=== PATIENT | male | born 1955 | race Caucasian/White ===

== ENCOUNTER 2020-12-25 09:21 | Emergency (ER) | payer OTHER, MEDICARE ==
[~2020-12-25] VITALS: Ht 175.3 cm; Wt 90.7 kg
[2020-12-25 09:21] VITALS: BP 114/56
--- NOTE | 2020-12-25 09:21 | NUR ---
PT BIBA to bed 10 via [facility].
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
--- NOTE | 2020-12-25 09:30 | NUR ---
Dr. Gleason is evaluating patient at bedside.
--- NOTE | 2020-12-25 09:45 | NUR ---
RAD at bedside
[2020-12-25] MEDS ORDERED: ACET-2619 PO (09:53)
[2020-12-25] MEDS ORDERED: TAMS0.4C96 PO (09:53)
[2020-12-25] MEDS ORDERED: ASPI-1822 PO (09:53)
[2020-12-25] MEDS ORDERED: ATOR20TA PO (09:53)
[2020-12-25] MEDS ORDERED: SODI100076 PO (09:53)
[2020-12-25] MEDS ORDERED: AMLO5TAB PO (09:53)
[2020-12-25] MEDS ORDERED: TELM40TA1 PO (09:53)
--- NOTE | 2020-12-25 10:15 | NUR ---
Dr. Gleason on the phone with son to provide status update on patient.
--- NOTE | 2020-12-25 10:34 | NUR ---
Patient placed back onto room air for updated baseline per Dr. Gleason request. Water cup provided per patient request. Dr. Gleason made aware.
--- NOTE | 2020-12-25 10:45 | NUR ---
Patient tolerated water sips well. SpO2 95% on room air. Dr. Gleason made aware.
[2020-12-25 11:39] VITALS: BP 107/60
--- NOTE | 2020-12-25 11:39 | NUR ---
Patient discharged with v/s stable. Written and verbal after care instructions given and explained. Patient verbalized understanding. Ambulance Transport with to care home. All questions addressed prior to discharge. Advised to follow up with PMD.
--- NOTE | 2020-12-25 11:42 | NUR ---
Transport team arrived and assisted patient to [facility] without incident.
== END 2020-12-25 11:42 | disposition home or self-care (01) ==
LOC: MED 09:21
DX: T17.300A Unspecified foreign body in larynx causing asphyxiation, initial encounter (principal); I10 Essential (primary) hypertension; Z88.0 Allergy status to penicillin; Z79.899 Other long term (current) drug therapy; X58.XXXA Exposure to other specified factors, initial encounter; Y93.89 Activity, other specified; Y92.89 Other specified places as the place of occurrence of the external cause; Y99.8 Other external cause status
CPT/HCPCS: 71045; 99283

== ENCOUNTER 2020-12-30 21:56 | Inpatient (IN) | payer OTHER, MEDICARE, SELFPAY ==
[~2020-12-30] VITALS: Ht 172.7 cm; Wt 89.8 kg
[2020-12-30 21:56] VITALS: BP 66/30
[~2020-12-30 21:56] MED LIST: ACET-2619 PO; AMLO5TAB PO; ASPI-1822 PO; ATOR20TA PO; SODI100076 PO; TAMS0.4C96 PO; TELM40TA1 PO
--- NOTE | 2020-12-30 21:56 | NUR ---
PT DOROTHY BLS. TAKEN TO BED 10
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
[2020-12-30] MEDS ORDERED: ACETAMINOPHEN 650 MG SUPP RC ONE (22:10)
[2020-12-30] MEDS ORDERED: NACL 0.9% 2,500 ML IV ONE (22:20)
[2020-12-30 23:00] LABS: BILIRUBIN,URINE NEGATIVE (NEGATIVE); BLOOD, URINE 3+ (NEGATIVE); COLOR,URINE YELLOW (YELLOW); LEUKOCYTE ESTERASE ,URINE 3+ (NEGATIVE); NITRITE, URINE NEGATIVE (NEGATIVE); UGLUCOSE NEGATIVE (NEGATIVE)
[2020-12-30 23:06] LABS: BASOPHILS # (AUTO) 0.4 K/uL (0.00-0.22); BASOPHILS % (AUTO) 2.5 % (0.0-2.0); EOSINOPHILS # (AUTO) 0.4 K/uL (0-0.4); EOSINOPHILS % (AUTO) 2.7 % (0.0-4.0); HEMATOCRIT 33.7 % (36-52); HEMOGLOBIN 10.8 g/dL (12.0-18.0); LYMPHOCYTES # (AUTO) 1.9 K/uL (2.0-11.5); LYMPHOCYTES % (AUTO) 13.1 % (20.5-51.1); MEAN CORPUSCULAR HEMOGLOBIN 28 pg (27-31); MEAN CORPUSCULAR HGB CONC 32 g/dL (33-37); MEAN CORPUSCULAR VOLUME 87.2 fL (80-94); MONOCYTES # (AUTO) 1.2 K/uL (0.8-1.0); MONOCYTES % (AUTO) 8.1 % (1.7-9.3); NEUTROPHILS # (AUTO) 10.9 K/uL (1.8-7.7); NEUTROPHILS % (AUTO) 73.6 % (42.2-75.2); PLATELET COUNT (AUTO) 501 K/uL (140-450); RED BLOOD CELL COUNT(AUTO) 3.87 MIL/uL (4.20-6.10); RED CELL DISTRIBUTION WIDTH 15.9 % (11.6-13.7); WHITE BLOOD COUNT (AUTO) 14.7 K/uL (4.8-10.8)
--- NOTE | 2020-12-30 23:15 | NUR ---
DR. DEE AT BEDSIDE FOR EXAM
[2020-12-30] MEDS ORDERED: NACL 0.9% 1,000 ML IV ONE ×2 (23:35)
[2020-12-30 23:37] LABS: ALBUMIN 1.9 g/dL (3.4-5.0); ANION GAP 20.8 (8-16); CARBON DIOXIDE 19.7 mmol/L (21-32); CREATININE 3.4 mg/dL (0.6-1.3); POTASSIUM 4.5 mmol/L (3.5-5.1); TOTAL BILIRUBIN 0.4 mg/dL (0.0-1.0)
[2020-12-30 23:38] LABS: PROTHROMBIN TIME 11.1 secs (10.8-13.4)
[2020-12-30 23:38] LABS: APPEARANCE,URINE HAZY (CLEAR)
[2020-12-30 23:55] LABS: RBC,URINE >100 /HPF (0-5); WBC,URINE 20-60 /HPF (0-5)
[2020-12-31] MEDS ORDERED: cefTRIAXone 1,000 MG VIAL ONE (00:18)
--- NOTE | 2020-12-31 00:29 | NUR ---
PT TAKEN TO CT
[2020-12-31] MEDS ORDERED: NACL 0.45% 1,000 ML IV ONE (00:35)
--- NOTE | 2020-12-31 02:00 | NUR ---
BP IMPROVED. IS MORE VERBAL BUT IS WITH CONFUSED CONVERATION. PT IS AFEBRILE
[2020-12-31] MEDS ORDERED: ONDA4TAB PO (02:44)
[2020-12-31] MEDS ORDERED: HEPA500056 (02:44)
[2020-12-31] MEDS ORDERED: TAMS0.4C96 PO (02:45)
--- NOTE | 2020-12-31 03:06 | NUR ---
Patient will be admitted to care of DANIEL GOLDBERG. Belongings list completed. Transfered via rwelch, attached to .
--- NOTE | 2020-12-31 03:10 | NUR ---
RECEIVED PATIENT FROM ER NURSE VIA [facility] FOR CONTINUITY OF CARE. PATIENT IS ALERT WITH EPISODES OF CONFUSION, ABLE TO MAKE SIMPLE NEEDS KNOWN. RESPIRATIONS EVEN, UNLABORED. NO S/S RESPIRATORY DISTRESS. S1/S2 AUSCULTATED. TELE MONITORING. SKIN ASSESSMENT COMPLETED. ABDOMINAL WOUND NOTED WITH [address] IN [address] WITH JOYNER DRAINAGE NOTED. NON PITTING EDEMA NOTED TO LEFT HAND. SALINE LOCK TO LEFT WRIST 18G PATENT/INTACT. IV SITE TO LEFT AC 18G PATENT/INTACT, INFUSING FLUIDS WELL. NO C/O PAIN. NO S/S ACUTE DISTRESS. ABDOMEN SOFT, NONTENDER, NONDISTENDED. BOWEL SOUNDS ACTIVE x4 QUADRANTS. OSUNA CATHETER PATENT WITH YELLOW URINE DRAINING TO GRAVITY. PATIENT ORIENTED TO ROOM/STAFF/CALL LIGHT. MRSA SCREEN COMPLETED. PLAN OF CARE DISCUSSED. CALL LIGHT IN REACH. SAFETY PRECAUTIONS IN PLACE.
--- NOTE | 2020-12-31 03:14 | NUR ---
CONTACTED MD REGARDING ADMIT ORDERS. AWAITING RESPONSE.
[2020-12-31 04:00] VITALS: BP 110/59
--- NOTE | 2020-12-31 05:04 | NUR ---
PATIENT IS ASLEEP. NO S/S ACUTE DISTRESS. PATIENT CLEAN/DRY. CALL LIGHT WITHIN REACH. SAFETY PRECAUTIONS IN PLACE.
--- NOTE | 2020-12-31 07:15 | NUR ---
RECEIVED REPORT FROM ELECTRICAL LINESWORKER RN FOR CONTINUITY OF CARE. PATIENT ASLEEP IN BED IN SUPINE POSITION IN WOUND BED. DTI AT SACRAL AREA. ABD OPEN WOUND, COVERED WITH DRY DRESSING. IV TO LEFT RIGHT AC 18G INFUSING 1/2 NS @ 100ML/HR. OSUNA CATHETER IN PLACE, DRAIN FREELY BY GRAVITY. NO ACUTE DISTRESS NOTED. SAFETY MEASURES IN PLACE, WILL CONTINUE TO MONITOR.
[2020-12-31 08:00] VITALS: BP 117/60
--- NOTE | 2020-12-31 10:11 | NUR ---
PATIENT HAS BEEN SCREENED AND CATEGORIZED HIGH NUTRITION RISK. PATIENT WILL BE SEEN WITHIN 1-2 DAYS OF ADMISSION. 12/31/20 - 01/01/21 TANIYA MELGAR MBA, RD
[2020-12-31] MEDS ORDERED: DOCUSATE SODIUM 100 MG GELCAP PO PRN (10:45)
[2020-12-31] MEDS ORDERED: NACL 0.9% 1,000 ML IV SCH (10:45)
[2020-12-31] MEDS ORDERED: HYDROcodone/APAP 7.5/325 MG 1 TAB PO PRN (10:45)
[2020-12-31] MEDS ORDERED: ONDANSETRON 4 MG/2 ML VIAL IM/IVP PRN (10:45)
[2020-12-31] MEDS ORDERED: ACETAMINOPHEN 325 MG TAB PO PRN ×2 (10:45→14:40)
[2020-12-31] MEDS ORDERED: POTASSIUM CHLORIDE 10 MEQ TABER PO PRN (10:45)
--- NOTE | 2020-12-31 10:48 | NUR ---
WOUND CARE PERFORMED AT THE ABDOMEN. CLEANSE WITH NS, PACKED WITH KERLIX ROLL WET TO DRY, COVERED WITH ABD PAD, SECURED WITH TAPE, SAFETY MEASURES IN PLACE. PATIENT TOLERATED WELL. SACRAL AREA OPTIFORM DRESSING INTACT. SAFETY MEASURES IN PLACE, WILL CONTINUE TO MONITOR.
[2020-12-31 11:22] LABS: CHOL/HDL RATIO 3.9 (1-4.5); FREE T4 (FREE THYROXINE) 1.39 ng/dL (0.76-1.46); MAGNESIUM 2.4 mg/dL (1.8-2.4); PHOSPHORUS 3.4 mg/dL (2.5-4.9); THYROID STIMULATING HORMONE 2.12 uIU/mL (0.34-3.74)
[2020-12-31] MEDS ORDERED: NACL 0.45% 1,000 ML IV SCH (11:30)
[2020-12-31 12:00] VITALS: BP 109/49
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
[2020-12-31] MEDS ORDERED: VANCOMYCIN PER PHARMACY MC PRN (13:25)
[2020-12-31] MEDS ORDERED: DEXTROSE 5% 1,000 ML IV SCH (13:30)
[2020-12-31] MEDS ORDERED: VANCOMYCIN 1,500 MG in DEXTROSE 5% 500 ML IV SCH (15:00)
--- NOTE | 2020-12-31 15:01 | NUR ---
FIRST DOSE OF VANCOMYCIN GIVEN VIA IVPB. SAFETY MEASURES IN PLACE, WILL CONTINUE TO MONITOR.
[2020-12-31 15:24] LABS: ANION GAP 16.7 (8-16); CARBON DIOXIDE 19.4 mmol/L (21-32); CREATININE 2.9 mg/dL (0.6-1.3); POTASSIUM 4.1 mmol/L (3.5-5.1)
--- NOTE | 2020-12-31 15:40 | NUR ---
RECEIVED CRITICAL LAB VALUE SODIUM 157, REPORTED TO DR. FREY. NEW ORDER OBTAINED TO DECREASE IVF D5W TO 75ML/HR. WILL CARRY OUT.
[2020-12-31 16:00] VITALS: BP 110/64
--- NOTE | 2020-12-31 16:15 | NUR ---
REPOSITION THE PATIENT TO RIGHT LATERAL. PATIENT KEPT COMFORTABLY. SAFETY MEASURES IN PLACE, WILL CONTINUE TO MONITOR.
[2020-12-31] MEDS: DEXTROSE 5% 1,000 ML IV SCH (17:21)
--- NOTE | 2020-12-31 19:20 | NUR ---
ENDORSED PATIENT TO ENGINEERING DIRECTOR RN FOR CONTINUITY OF CARE. PATIENT IN STABLE CONDITION.
--- NOTE | 2020-12-31 19:29 | NUR ---
RECEIVED PATIENT IN BED AWAKE SLURRED/GABLED SPEECH A AND OX1 TO HIS NAME.
[2020-12-31 20:00] VITALS: BP 118/70
--- NOTE | 2020-12-31 21:00 | NUR ---
ALL DUE MEDS WERE GIVEN VIA IV, TOLERATED WELL BY THE PATIENT
--- NOTE | 2020-12-31 22:00 | NUR ---
SUPERVISOR CONCRETE BLOCK PLANT CALLED TO DOOR HANGER PATIENT FOR CT SCAN PROCEDURE
--- NOTE | 2020-12-31 23:00 | NUR ---
DR. KILGORE CAME BY TO SEE THE PATIENT, RN HELPED HIM TO ASSESS THE WOUND OF THE PATIENT AND LINES ATTACHED TO THE PATIENT LIKE OSUNA CATH. AND RAFI DRAIN FROM ABDOMINAL WOUND
[2021-01-01] VITALS: BP 116/58
--- NOTE | 2021-01-01 | NUR ---
NEW ORDER OF YL IVPB.
[2021-01-01 04:00] VITALS: BP 108/60
[2021-01-01] MEDS: metroNIDAZOLE 500 MG/NS PREMIX 100 ML IV SCH ×2 (04:48→12:42)
[2021-01-01] MEDS: DEXTROSE 5% 1,000 ML IV SCH (05:00)
--- NOTE | 2021-01-01 05:05 | NUR ---
PATIENT ASLEEP DUE FLAGYL 500 MG IVPB ADMINISTERED, YARD DEMURRAGE CLERK CAME TO DRAW BLOOD.
[2021-01-01 06:06] LABS: BASOPHILS # (AUTO) 0.4 K/uL (0.00-0.22); BASOPHILS % (AUTO) 2.7 % (0.0-2.0); EOSINOPHILS # (AUTO) 0.9 K/uL (0-0.4); EOSINOPHILS % (AUTO) 6.9 % (0.0-4.0); HEMATOCRIT 29.3 % (36-52); HEMOGLOBIN 9.4 g/dL (12.0-18.0); LYMPHOCYTES # (AUTO) 1.4 K/uL (2.0-11.5); LYMPHOCYTES % (AUTO) 10.4 % (20.5-51.1); MEAN CORPUSCULAR HEMOGLOBIN 29 pg (27-31); MEAN CORPUSCULAR HGB CONC 32 g/dL (33-37); MONOCYTES # (AUTO) 1.1 K/uL (0.8-1.0); NEUTROPHILS # (AUTO) 9.8 K/uL (1.8-7.7); PLATELET COUNT (AUTO) 409 K/uL (140-450); RED CELL DISTRIBUTION WIDTH 15.6 % (11.6-13.7); WHITE BLOOD COUNT (AUTO) 13.6 K/uL (4.8-10.8)
[2021-01-01 06:23] LABS: ANION GAP 18.4 (8-16); CARBON DIOXIDE 17.5 mmol/L (21-32); CREATININE 2.8 mg/dL (0.6-1.3); POTASSIUM 3.9 mmol/L (3.5-5.1)
--- NOTE | 2021-01-01 06:48 | NUR ---
REPORT GIVEN TO INCOMING RN, CONTINUE CARE ENDORSED.
--- NOTE | 2021-01-01 07:20 | NUR ---
RECEIVED REPORT FROM COMMISSIONER OF RELOCATION SERVICES RN FOR CONTINUITY OF CARE. PATIENT ASLEEP IN BED COMFORTABLY IN RIGHT LATERAL POSITION. IV TO LEFT AC 18G INFUSING IVF D5W @ 75ML/HR. ABDOMEN OPEN WOUND DRESSING INTACT. SACRAL DTI DRESSING INTACT. OSUNA CATHETER IN PLACE, DRAIN FREELY BY GRAVITY. SAFETY MEASURES IN PLACE, NO ACUTE DISTRESS NOTED AT THIS TIME. WILL CONTINUE TO MONITOR.
[2021-01-01 08:00] VITALS: BP 113/64
[2021-01-01 08:06] LABS: T4 (THYROXINE) 6.7 ug/dL (4.5-12.0)
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
[2021-01-01] MEDS: amLODIPine 5 MG TAB PO SCH (09:00)
[2021-01-01] MEDS: LOSARTAN 50 MG TAB PO SCH (09:00)
[2021-01-01] MEDS ORDERED: TELMISARTAN 40 MG PO SCH (09:00)
[2021-01-01] MEDS ORDERED: TAMSULOSIN 0.4 MG CAP PO SCH (09:00)
[2021-01-01] MEDS ORDERED: SODIUM CHLORIDE 1 GM TAB PO SCH (09:00)
--- NOTE | 2021-01-01 09:05 | NUR ---
INFORMED PSYCHIATRIC TECH WALT THAT PATIENT NEED TO TRANSFER TO [facility] REGARDING DR. PHILIP ARRINGTON. WALT MADE AWARE. WILL WORK ON THAT. WILL FOLLOW UP.
[2021-01-01] MEDS: NACL 0.45% 1,000 ML IV SCH ×2 (09:45→21:45)
[2021-01-01] MEDS: TAMSULOSIN 0.4 MG CAP PO SCH (09:59)
[2021-01-01] MEDS: ATORVASTATIN 20 MG TAB PO SCH (09:59)
[2021-01-01] MEDS: ASPIRIN 81 MG TAB.CHEW PO SCH (09:59)
--- NOTE | 2021-01-01 11:00 | NUR ---
DC PLANNING: PT HAS A TRANSFER ORDER TO GO TO [facility] FOR DEHISCENCE OF SURGICAL SITE AND WILL NEED FURTHER EVALUATION WITH THE SURGEON. FAXED TO [facility]. CM TO FOLLOW Addendum: 01/01/21 at 1309 by Alisha Davis RN DC PLANNING: RECEIVED A CALL FROM [facility]P SPOKE WITH BIBI , PROVIDED DR PALACIOS'S UMBER FOR PEER TO PEER . ANISH MTZ WILL REACH OUT THE TRAUMA DR AND CALL BACK. CM TO FOLLOW Addendum: 01/01/21 at 1606 by Alisha Davis RN DC PLANNING: PER DR PALACIOS [facility] DIDN'T ACCEPT PATIENT RECOMMENDED FOR OUR SURGEON TO EVALUATE. CONSULTED WITH DR FELIPE . CM TO FOLLOW Addendum: 01/03/21 at 1450 by Alisha Davis RN DC PLANNING: FAXED TO [facility] FOR HIGHER LEVEL OF CARE. CM TO FOLLOW Addendum: 01/04/21 at 1201 by Alisha Davis RN DC PLANNING: PT HAS A DC ORDER TO GO BACK TO [facility] [place] WITH IV ROCEPHIN FOR 7 MORE DAYS. [facility] ACCEPTED PATIENT CAN GO TO ROOM 51A UNDER THE CARE OF DR WINN. # TO GIVE REPORT [phone] . PER [facility] TRANSPORT WILL BE COVERED WITH [facility] [place].ARRANGED TRANSPORT WITH PERSONAL CARE TRANSPORT SPOKE WITH REBEKAH Cabrera [phone] DRYWALL FOREMAN TIME BETWEEN 4-5PM. NOTIFIED DANIEL BARON . CM TO FOLLOW
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
[2021-01-01 12:00] VITALS: BP 113/69
--- NOTE | 2021-01-01 12:15 | NUR ---
UPDATED PATIENT'S SON JIGAR AND PATIENT'S BROTHER OMAIRA REGARDING PATIENT'S CONDITION. AND PENDING TRANSFER TO [facility]. VERBALIZED UNDERSTANDING, ALL QUESTIONS ANSWERED. ASSISTED BONDING AGENT AND REPOSITED PATIENT TO HIGH BAUER'S. PATIENT IN STABLE CONDITION. WILL CONTINUE TO MONITOR.
--- NOTE | 2021-01-01 12:57 | NUR ---
RD RECOMMENDATIONS WERE APPROVED BY DR. PALACIOS FOR A MULTIVITAMIN DAILY AND VITAMIN C 500 MG DAILY.
--- NOTE | 2021-01-01 14:00 | NUR ---
01/01/21 RD INITIAL ASSESSMENT COMPLETED PLEASE REFER TO NUTRITION ASSESSMENT UNDER CARE ACTIVITY FOR ESTIMATED NUTRITIONAL NEEDS. 1. CONTINUE PUREED DIET TOLERATED 2. RECOMMEND VITAMIN C AND MULTIVITAMIN DAILY. 3. RECOMMEND ENSURE TID. 4. RD TO FOLLOW-UP 2-3 DAYS, RISK SHAMIKA OSBORN RD
[2021-01-01] MEDS: HYDRAGUARD CREAM TP SCH (14:14)
[2021-01-01] MEDS: GAUZE TP SCH (14:14)
[2021-01-01 16:00] VITALS: BP 113/60
--- NOTE | 2021-01-01 19:25 | NUR ---
RECEIVED BEDSIDE REPORT FROM DAY SHIFT NURSE FOR CONTINUITY OF CARE. PT IS ASLEEP. CHEST RISE AND FALL IS SYMMETRICAL. NO RESPIRATORY DISTRESS NOTED ON RA. SR ON TELE MONITORING. OSUNA CATH IN PLACE DRAINING CLEAR, YELLOW URINE. SKIN IS WARM AND DRY. IV IS IN THE LEFT AC 18 GAUGE SALINE LOCKED AND LEFT FOREARM 18 GAUGE RUNNING 1/2 NS AT 75 ML/ HR. RAFI DRAIN IN PLACE FROM ABD WOUND. MULTIPLE WOUNDS ON BODY WITH OPTIFOAM IN PLACE. WILL ASSESS SHORTLY. PT IS STABLE AT THIS TIME. PLAN OF CARE DISCUSSED.
--- NOTE | 2021-01-01 19:28 | NUR ---
ENDORSED PATIENT TO SOCK MENDER RN FOR CONTINUITY OF CARE. PATIENT IN STABLE CONDITION.
[2021-01-01 20:00] VITALS: BP 108/64
--- NOTE | 2021-01-01 21:30 | NUR ---
PT HAD A BM. SOFT, BROWN, AND SMALL IN AMOUNT. PT WAS CHANGED AND REPOSITIONED. PADDED BOOT IN PLACE ON RIGHT HEEL. PT IS A&OX1. RESPONDS TO NAME. ABD DRESSING IN PLACE ON WOUND. RAFI DRAIN IN PLACE. OSUNA CATH IS DRAINING URINE. PT IS STABLE. WILL CONTINUE TO MONITOR.
--- NOTE | 2021-01-01 23:30 | NUR ---
PT IS ASLEEP. CHEST RISE AND FALL IS SYMMETRICAL. BREATHING IS UNLABORED ON RA. IV FLUIDS ARE INFUSING ORDERED. BED ALARM IS ON. PT IS STABLE.
[2021-01-02] VITALS: BP 117/64
[2021-01-02] MEDS: HYDRAGUARD CREAM TP SCH ×2 (01:01→13:41)
--- NOTE | 2021-01-02 01:14 | NUR ---
PT AWOKE WHEN CALLED BY NAME. NO DISTRESS NOTED. PT APPEARS TO BE CONFUSED AND SPEECH IS DELAYED. DRESSING ON WOUNDS ARE INTACT. MINIMAL DRAINAGE NOTED ON ABD WOUND. BREATHING IS UNLABORED. WILL CONTINUE TO MONITOR.
--- NOTE | 2021-01-02 03:20 | NUR ---
ROUNDED ON PT. DIAPER IS SOILED WITH A BM. DIAPER WAS CHANGED AND LINENS WERE CHANGED WELL. PT TOLERATED THIS WELL AND ASSISTED WITH TURNING. PT TALKING BUT SPEECH IS DELAYED. PT IS BACK TO SLEEP.
[2021-01-02 04:00] VITALS: BP 110/60
--- NOTE | 2021-01-02 04:15 | NUR ---
ELEMENTARY CLASSROOM TEACHER AT BEDSIDE DRAWING LABS. PT IS COMPLIANT. NO DISTRESS NOTED.
[2021-01-02 05:32] LABS: ANION GAP 17.9 (8-16); CREATININE 2.6 mg/dL (0.6-1.3); POTASSIUM 3.9 mmol/L (3.5-5.1)
[2021-01-02 05:35] LABS: BASOPHILS # (AUTO) 0.3 K/uL (0.00-0.22); BASOPHILS % (AUTO) 2.6 % (0.0-2.0); EOSINOPHILS # (AUTO) 1.1 K/uL (0-0.4); EOSINOPHILS % (AUTO) 9.7 % (0.0-4.0); HEMATOCRIT 27.9 % (36-52); LYMPHOCYTES # (AUTO) 1.9 K/uL (2.0-11.5); MEAN CORPUSCULAR HEMOGLOBIN 28 pg (27-31); MEAN CORPUSCULAR HGB CONC 32 g/dL (33-37); MEAN CORPUSCULAR VOLUME 87.8 fL (80-94); MONOCYTES % (AUTO) 9.1 % (1.7-9.3); NEUTROPHILS # (AUTO) 6.8 K/uL (1.8-7.7); NEUTROPHILS % (AUTO) 61.6 % (42.2-75.2); PLATELET COUNT (AUTO) 340 K/uL (140-450); RED BLOOD CELL COUNT(AUTO) 3.18 MIL/uL (4.20-6.10); RED CELL DISTRIBUTION WIDTH 15.8 % (11.6-13.7)
--- NOTE | 2021-01-02 06:28 | NUR ---
PT HAD ANOTHER BM AND WAS CHANGED. PT TOLERATED CHANGING WELL. NO DISTRESS NOTED. PT DENIES PAIN. BREATHING IS UNLABORED ON RA. WILL CONTINUE TO MONITOR.
--- NOTE | 2021-01-02 07:20 | NUR ---
ENDORSED PT TO DAY SHIFT NURSE FOR CONTINUITY OF CARE. PT IS ASLEEP AND STABLE AT THIS TIME. NO DISTRESS NOTED. PLAN OF CARE DISCUSSED.
--- NOTE | 2021-01-02 07:30 | NUR ---
RECEIVED REPORT FROM PROFESSOR OF LATIN AMERICAN STUDIES NURSE. PT IN BED, AOX1. SPEECH IS MUMBLED, UNABLE TO MAKE NEEDS KNOWN. FLACC 0, RESPIRATIONS ARE EVEN AND UNLABORED TO ROOM AIR. ABDOMEN SOFT AND NON-TENDER. SKIN IS WARM, DRY, SKIN NOT INTACT, REFER TO WOUND ASSESSMENT. WITH IV ACCESS ON LEFT FA G18, LEFT AC G18, IVF INFUSING WELL. RAFI DRAIN INTACT. SAFETY MEASURES IN PLACE, CALL LIGHT WITHIN REACH. WILL CONTINUE TO MONITOR.
[2021-01-02 08:00] VITALS: BP 110/59
--- NOTE | 2021-01-02 08:50 | NUR ---
DUE MEDS CRUSHED AND GIVEN WITH APPLESAUCE. TOLERATED WELL. ASSISTED WITH BREAKFAST
[2021-01-02] MEDS: LOSARTAN 50 MG TAB PO SCH (09:01)
[2021-01-02] MEDS: ASPIRIN 81 MG TAB.CHEW PO SCH (09:01)
[2021-01-02] MEDS: MULTIVITAMIN 1 TAB PO SCH (09:01)
[2021-01-02] MEDS: ASCORBIC ACID 500 MG TAB PO SCH (09:01)
[2021-01-02] MEDS: TAMSULOSIN 0.4 MG CAP PO SCH (09:01)
[2021-01-02] MEDS: ATORVASTATIN 20 MG TAB PO SCH (09:01)
[2021-01-02] MEDS: amLODIPine 5 MG TAB PO SCH (09:01)
--- NOTE | 2021-01-02 09:15 | NUR ---
SEEN AND EXAMINED BY DR GIL FELIPE
[2021-01-02] MEDS ORDERED: VANCOMYCIN HCL 1.25 GM in DEXTROSE 5% 250 ML IV SCH (10:00)
--- NOTE | 2021-01-02 11:03 | NUR ---
PT ASLEEP IN BED. FLACC 0, NO SOB
[2021-01-02 12:00] VITALS: BP 116/64
--- NOTE | 2021-01-02 13:00 | NUR ---
WOUND CARE DONE ON ABDOMINAL SURGICAL WOUND
[2021-01-02] MEDS: GAUZE TP SCH (13:40)
[2021-01-02] MEDS: NACL 0.45% 1,000 ML IV SCH (13:40)
--- NOTE | 2021-01-02 15:15 | NUR ---
FLACC 0, RESPIRATIONS EVEN AND UNLABORED
[2021-01-02 16:00] VITALS: BP 118/68
--- NOTE | 2021-01-02 17:51 | NUR ---
FLACC 0, NO RESPIRATORY DISTRESS, KEPT CLEAN AND DRY
--- NOTE | 2021-01-02 19:10 | NUR ---
RECEIVED BEDSIDE REPORT FROM DAY SHIFT NURSE FOR CONTINUITY OF CARE. PT IS AWAKE AND COMMUNICATING VERBALLY. PT APPEARS TO BE CONFUSED. A&OX1. ON RA WITH BREATHING UNLABORED. NO SIGNS OF DISTRESS. SR ON TELE MONITORING. OSUNA CATH IN PLACE DRAINING CLEAR, YELLOW URINE. SKIN IS WARM AND DRY. ABD WOUND DEHISCENCE WITH DRY DRESSING INTACT. CLOSED WOUNDS ON THE SACRAL, RIGHT HEEL, MIDDLE BACK, AND RIGHT HIP. IV IS IN THE LEFT AC 18 GAUGE AND LEFT FOREARM 18 GAUGE RUNNING HALF NS AT 75 ML PER HOUR PER ORDER. PT DENIES PAIN. PT IS STABLE AT THIS TIME. PLAN OF CARE DISCUSSED.
[2021-01-02 20:00] VITALS: BP 112/64
--- NOTE | 2021-01-02 21:00 | NUR ---
ASKED PT IF HE WAS HUNGRY AND WANTED TO EAT DINNER. PT STATED HE WOULD LIKE SOMETHING TO EAT. PT ATE 30% OF PUREED FOOD AND STATED HE WAS FULL. PT HAD HALF OF THE THICKENED ENSURE SHAKE. PT TOLERATED WELL. PT IS BACK TO SLEEP IN SEMI FOWLERS POSITION.
--- NOTE | 2021-01-02 23:00 | NUR ---
ROUNDED ON PT. HE AWOKE BRIEFLY AND ASKED FOR SOMETHING TO DRINK. ENSURE WAS PROVIDED REQUESTED. BREATHING IS UNLABORED ON RA. IV FLUIDS ARE INFUSING. PT IS STABLE.
[2021-01-03] VITALS: BP 113/63
[2021-01-03] MEDS: HYDRAGUARD CREAM TP SCH ×2 (00:11→12:49)
--- NOTE | 2021-01-03 00:11 | NUR ---
PT WAS CHANGED AND REPOSITIONED. PT HAD A BM, SMALL IN SIZE, AND BROWN IN COLOR. OSUNA CATH CARE WAS PROVIDED. IV WAS FLUSHED AND IS PATENT. IV FLUIDS ARE INFUSING ORDERED. NO DISTRESS NOTED. PT DENIES PAIN.
[2021-01-03] MEDS: NACL 0.45% 1,000 ML IV SCH ×2 (00:27→15:19)
--- NOTE | 2021-01-03 02:15 | NUR ---
PT IS SLEEPING. CHEST RISE AND FALL SYMMETRICAL. ON RA. IV FLUIDS INFUSING. BED ALARM ON. PT IS STABLE.
--- NOTE | 2021-01-03 03:59 | NUR ---
PT WAS REPOSITIONED. NO DISTRESS NOTED. BREATHING IS UNLABORED ON RA. PILLOWS IN PLACE UNDERNEATH BONY REGIONS TO OFFSET PRESSURE. PT IS STABLE. WILL MONITOR.
[2021-01-03 04:00] VITALS: BP 124/56
--- NOTE | 2021-01-03 04:00 | NUR ---
PT'S TEMP IS 100.3 F. COOLING MEASURES WERE APPLIED. BLANKETS WERE REMOVED. WILL REASSESS TEMP SHORTLY.
--- NOTE | 2021-01-03 05:00 | NUR ---
CHECKED PT'S TEMP AFTER COOLING MEASURES WERE APPLIED FOR AN HOUR AND PT'S TEMP IS 97.0 F. PT IS STABLE. COOLING MEASURES REMOVED. SHEET PLACED ON PT.
--- NOTE | 2021-01-03 05:39 | NUR ---
PT WAS CHANGED AND REPOSITIONED. OSUNA CATH CARE PROVIDED. PADDED BOOTS PLACED ON PT. DRESSINGS ON WOUNDS ARE DRY AND INTACT. PT IS STABLE.
[2021-01-03 05:55] LABS: BASOPHILS # (AUTO) 0.2 K/uL (0.00-0.22); BASOPHILS % (AUTO) 2.4 % (0.0-2.0); EOSINOPHILS # (AUTO) 0.9 K/uL (0-0.4); EOSINOPHILS % (AUTO) 9.5 % (0.0-4.0); HEMATOCRIT 31.9 % (36-52); HEMOGLOBIN 10.2 g/dL (12.0-18.0); LYMPHOCYTES # (AUTO) 1.3 K/uL (2.0-11.5); LYMPHOCYTES % (AUTO) 13.3 % (20.5-51.1); MEAN CORPUSCULAR HEMOGLOBIN 29 pg (27-31); MEAN CORPUSCULAR HGB CONC 32 g/dL (33-37); MONOCYTES # (AUTO) 1.1 K/uL (0.8-1.0); MONOCYTES % (AUTO) 11.5 % (1.7-9.3); NEUTROPHILS % (AUTO) 63.3 % (42.2-75.2); PLATELET COUNT (AUTO) 326 K/uL (140-450); RED BLOOD CELL COUNT(AUTO) 3.59 MIL/uL (4.20-6.10); RED CELL DISTRIBUTION WIDTH 15.8 % (11.6-13.7); WHITE BLOOD COUNT (AUTO) 9.5 K/uL (4.8-10.8)
[2021-01-03 06:02] LABS: ANION GAP 18.3 (8-16); CARBON DIOXIDE 18.5 mmol/L (21-32); CREATININE 2.4 mg/dL (0.6-1.3); POTASSIUM 3.8 mmol/L (3.5-5.1)
--- NOTE | 2021-01-03 07:16 | NUR ---
ENDORSED PT TO DAY SHIFT NURSE FOR CONTINUITY OF CARE. PT IS STABLE AT THIS TIME. PLAN OF CARE DISCUSSED.
--- NOTE | 2021-01-03 07:30 | NUR ---
RECEIVED REPORT FROM THREE DIMENSIONAL ART INSTRUCTOR NURSE. PT IN BED, AOX1. SPEECH IS MUMBLED, UNABLE TO MAKE NEEDS KNOWN. FLACC 0, RESPIRATIONS ARE EVEN AND UNLABORED TO ROOM AIR. ABDOMEN SOFT AND NON-TENDER. SKIN IS WARM, DRY, SKIN NOT INTACT, REFER TO WOUND ASSESSMENT. WITH IV ACCESS ON LEFT FA G18, LEFT AC G18, IVF INFUSING WELL. RAFI DRAIN INTACT. SAFETY MEASURES IN PLACE, CALL LIGHT WITHIN REACH. WILL CONTINUE TO MONITOR.
[2021-01-03 08:00] VITALS: BP 95/56
--- NOTE | 2021-01-03 08:50 | NUR ---
DUE MEDS CRUSHED AND GIVEN WITH APPLESAUCE. TOLERATED WELL. STONE MASON AT BEDSIDE ASSISTING PT WITH BREAKFAST
[2021-01-03] MEDS: LOSARTAN 50 MG TAB PO SCH (09:07)
[2021-01-03] MEDS: ASPIRIN 81 MG TAB.CHEW PO SCH (09:07)
[2021-01-03] MEDS: TAMSULOSIN 0.4 MG CAP PO SCH (09:08)
[2021-01-03] MEDS: amLODIPine 5 MG TAB PO SCH (09:08)
[2021-01-03] MEDS: ATORVASTATIN 20 MG TAB PO SCH (09:08)
[2021-01-03] MEDS: MULTIVITAMIN 1 TAB PO SCH (09:08)
[2021-01-03] MEDS: ASCORBIC ACID 500 MG TAB PO SCH (09:08)
--- NOTE | 2021-01-03 10:45 | NUR ---
LEFT VOICE MAIL TO PT'S BROTHER TO OBTAIN CONSENT FOR AUTHORIZATION TO RELEASE HEALTH INFORMATION FROM [facility]. AWAITING CALL BACK
--- NOTE | 2021-01-03 12:10 | NUR ---
NO APPARENT DISTRESS. PT ASLEEP IN BED. FLACC 0, NO SOB
[2021-01-03] MEDS: GAUZE TP SCH (12:49)
[2021-01-03 13:00] VITALS: BP 113/60
--- NOTE | 2021-01-03 14:48 | NUR ---
01/03/21 RD FOLLOW UP COMPLETED PLEASE REFER TO NUTRITION ASSESSMENT UNDER CARE ACTIVITY FOR ESTIMATED NUTRITIONAL NEEDS. 1. CONTINUE PUREED DIET TOLERATED 2. CONTINUE VITAMIN C C AND A MULTIVITAMIN DAILY TO PROMOTE WOUND HEALING 3.CONTINUE ENSURE TID 4. ENCOURAGE PO INTAKE OVER 75% 5. RD TO FOLLOW-UP 2-3 DAYS, RISK SHAMIKA OSBORN RD
--- NOTE | 2021-01-03 15:00 | NUR ---
FLACC 0, RESPIRATIONS EVEN AND UNLABORED. REPOSITIONED. KEPT COMFORTABLE
[2021-01-03 16:00] VITALS: BP 112/62
--- NOTE | 2021-01-03 17:35 | NUR ---
WOUND CARE DONE ON ABDOMINAL SURGICAL WOUND
--- NOTE | 2021-01-03 19:30 | NUR ---
RECEIVED REPORT FROM CHARLES SANCHEZ DAYSHIFT NURSE AT BEDSIDE FOR CONTINUITY OF CARE, PT IN STABLE CONDITION. PT IS IN BED HOB ELEVATE 45%. HE IS AOX1-2 ON ROOM AIR WITH NO S/S OF PAIN OR DISTRESS NOTED. PT HAS 2 IV SITES LAC 18 G RUNNING 1/2 NORMAL SALINE AT 75MLS/HR. . PT ALSO HAS LFA 18 GUAGE INTACT AND ASYMPTOMATIC. PT HAS ABDOMINAL WOUND DRESSING DRY AND INTACT WITH RAFI DRAIN HAS MINIMAL YELLOW TINGED FLUID. HE ALSO HAS PITTING EDEMA PLUS 3 IN FEET; HAS ON HEEL PROTECTORS. ALL ASPIRATION AND FALLS PRECAUTIONS IN PLACE.
[2021-01-03 20:00] VITALS: BP 113/41
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
--- NOTE | 2021-01-03 22:30 | NUR ---
PT IN BED HE IS RESTING WITH EYES CLOSED, PT IS CONFUSED, HE WILL MAKE OCCASIONAL REMARKS TO SOMEONE ELSE TO (OMAIRA OR ALENA ECT. ) TO CLOSE THE FRONT DOOR ECT. PT RE-ORIENTED TO PLACE AND TIME. 1/2 NS CONTINUES AT 75MLS/HR. ALL ORDERED PRECAUTIONS IN PLACE.
[2021-01-04] VITALS: BP 116/57
--- NOTE | 2021-01-04 00:30 | NUR ---
PT IN BED NO S/S OF PAIN OR DISTRESS NOTED PT WAS TURNED, CHANGED AND REPOSITIONED IN BED V/S FOLLOWS: T 97.8 P 76 R 17 B/P 116/57 02 98% ON ROOM AIR. ALL ORDERED PRECAUTIONS IN PLACE.
[2021-01-04] MEDS: HYDRAGUARD CREAM TP SCH ×2 (01:17→13:00)
--- NOTE | 2021-01-04 02:00 | NUR ---
PT IN BED ASLEEP 1/2 N/S RUNNING AT 75MLS/HR OSUNA CATHETER IN PLACE AND DRAINING LIGHT YELLOW URINE, RAFI DRAIN IN PLACE WITH MINIMAL DRAINAGE. ABDOMEN DRESSING IS DRY AND INTACT NO DRAINAGE NOTED. ALL ORDERED PRECAUTIONS IN PLACE.
[2021-01-04] MEDS: NACL 0.45% 1,000 ML IV SCH ×2 (03:50→17:10)
[2021-01-04 04:00] VITALS: BP 102/62
--- NOTE | 2021-01-04 04:30 | NUR ---
PT WAS TURNED, CHANGED AND REPOSITIONED IN BED PT HAD 1000MLS OUT FROM [employer] CATHETER AND 5MLS FROM RAFI DRAIN. WOUND DRESSING IS DRY AND INTACT [place] INTACT MINIMAL SEROUS DRAINAGE NOTED. IV CONTINUES AT 120MLS OF 1/2 NORMAL SALINE. V/S FOLLOWS: T 98.4 P 96 R 20 B/P 102/62 02 95% ON ROOM AIR. ALL ORDERED PRECAUTIONS IN PLACE.
[2021-01-04 05:28] LABS: BASOPHILS # (AUTO) 0.2 K/uL (0.00-0.22); BASOPHILS % (AUTO) 2.3 % (0.0-2.0); EOSINOPHILS % (AUTO) 9.9 % (0.0-4.0); HEMATOCRIT 32.1 % (36-52); HEMOGLOBIN 10.3 g/dL (12.0-18.0); LYMPHOCYTES # (AUTO) 1.4 K/uL (2.0-11.5); LYMPHOCYTES % (AUTO) 14.1 % (20.5-51.1); MEAN CORPUSCULAR HEMOGLOBIN 28 pg (27-31); MEAN CORPUSCULAR HGB CONC 32 g/dL (33-37); MEAN CORPUSCULAR VOLUME 88.2 fL (80-94); MONOCYTES # (AUTO) 1.1 K/uL (0.8-1.0); MONOCYTES % (AUTO) 11.1 % (1.7-9.3); NEUTROPHILS % (AUTO) 62.6 % (42.2-75.2); PLATELET COUNT (AUTO) 338 K/uL (140-450); RED BLOOD CELL COUNT(AUTO) 3.64 MIL/uL (4.20-6.10); RED CELL DISTRIBUTION WIDTH 16.1 % (11.6-13.7); WHITE BLOOD COUNT (AUTO) 9.6 K/uL (4.8-10.8)
[2021-01-04 05:36] LABS: ANION GAP 13.4 (8-16); CARBON DIOXIDE 22.4 mmol/L (21-32); CREATININE 2.3 mg/dL (0.6-1.3); POTASSIUM 3.8 mmol/L (3.5-5.1)
[2021-01-04 05:44] LABS: MAGNESIUM 1.7 mg/dL (1.8-2.4)
--- NOTE | 2021-01-04 07:50 | NUR ---
RECEIVED BEDSIDE REPORT FROM MANAGEMENT ACCOUNTS MANAGER NURSE. PATIENT ASLEEP, SUPINE IN BED, ANSWERS TO NAME. BREATHING EVEN AND UNLABORED, ON RA, NO SIGNS OF ACUTE DISTRESS NOTED. [facility] CATHETER IN PLACE, DRAINING TO GRAVITY. RAFI DRAIN TO R SIDE OF ABD. LAC 18G, LFA 18G INFUSING 0.45% NS @ 75 ML/HR. BUSINESS DEVELOPMENT OFFICER IN PLACE. SAFETY MEASURES IN PLACE.
[2021-01-04 08:00] VITALS: BP 100/55
[2021-01-04] MEDS: ASPIRIN 81 MG TAB.CHEW PO SCH (09:40)
[2021-01-04] MEDS: LOSARTAN 50 MG TAB PO SCH (09:41)
[2021-01-04] MEDS: TAMSULOSIN 0.4 MG CAP PO SCH (09:41)
[2021-01-04] MEDS: ATORVASTATIN 20 MG TAB PO SCH (09:41)
[2021-01-04] MEDS: amLODIPine 5 MG TAB PO SCH (09:42)
[2021-01-04] MEDS: MULTIVITAMIN 1 TAB PO SCH (09:42)
[2021-01-04] MEDS: ASCORBIC ACID 500 MG TAB PO SCH (09:43)
--- NOTE | 2021-01-04 09:45 | NUR ---
ADMINISTERED SCHEDULED MEDS PER MD ORDER. MED EDUCATION PROVIDED, REINFORCEMENT NEEDED.
--- NOTE | 2021-01-04 11:09 | NUR ---
SON, OMAIRA, CALLED FOR UPDATES. OMAIRA WAS UPDATED ON PATIENT CONDITION. ALL QUESTIONS ANSWERED. ADVICED TO CALL OFFICE OF ANY MISSED DOCTORS APPOINTMENT DURING PATIENT HOSPITAL STAY AND TO OBTAIN A RESCHEDULED DATE FOR ANY OF THESE MISSED APPOINTMENTS.
[2021-01-04] MEDS ORDERED: MAGNESIUM OXIDE 400 MG TAB PO SCH (11:20)
[2021-01-04] MEDS ORDERED: ROC2I IV (11:53)
[2021-01-04 12:00] VITALS: BP 103/56
[2021-01-04] MEDS: GAUZE TP SCH (13:00)
[2021-01-04] MEDS ORDERED: FOAM DRESSING TP SCH (13:00)
--- NOTE | 2021-01-04 15:53 | NUR ---
CALLED [facility] TO GIVE PATIENT REPORT. SPOKE TO DANIEL SHANKAR AND GAVE REPORT. ALL QUESTIONS ANSWERED.
[2021-01-04 16:00] VITALS: BP 111/68
[2021-01-04 16:04] VITALS: BP 111/68
--- NOTE | 2021-01-04 18:41 | NUR ---
PATIENT PICKED UP FOR TRANSFER TO [facility] – [place]. ALL VITALS STABLE AT THIS TIME. IV ACCESS LEFT PER [facility] – [place] RN REQUEST FOR ADMINISTRATION OF PRESCRIBED IV ANTIBIOTICS.
== END 2021-01-04 18:50 | DRG 871 ==
LOC: MED 21:56 → MTU 12-31 02:13
PROVIDERS: ADMIT Emergency Medicine; ATTEND Emergency Medicine
DX: A41.9 Sepsis, unspecified organism (principal); G93.41 Metabolic encephalopathy; N17.0 Acute kidney failure with tubular necrosis; E43 Unspecified severe protein-calorie malnutrition; N39.0 Urinary tract infection, site not specified; E87.0 Hyperosmolality and hypernatremia; T81.30XA Disruption of wound, unspecified, initial encounter; Y83.8 Other surgical procedures as the cause of abnormal reaction of the patient, or of later complication, without mention of misadventure at the time of the procedure; Y92.89 Other specified places as the place of occurrence of the external cause; Z68.30 Body mass index [BMI] 30.0-30.9, adult; E66.9 Obesity, unspecified; E86.0 Dehydration; D64.9 Anemia, unspecified; E83.42 Hypomagnesemia; K72.90 Hepatic failure, unspecified without coma; Z20.822 Contact with and (suspected) exposure to COVID-19; K57.90 Diverticulosis of intestine, part unspecified, without perforation or abscess without bleeding; M16.11 Unilateral primary osteoarthritis, right hip; I12.9 Hypertensive chronic kidney disease with stage 1 through stage 4 chronic kidney disease, or unspecified chronic kidney disease; N18.9 Chronic kidney disease, unspecified; Z88.0 Allergy status to penicillin; R31.9 Hematuria, unspecified; D63.8 Anemia in other chronic diseases classified elsewhere
CPT/HCPCS: 36415; 36600; 70450; 71045; 72192; 80048; 80053; 80202; 81001; 82140; 82550; 82553; 82565; 82803; 83036; 83605; 83690; 83735; 83874; 83880; 84100; 84436; 84439; 84443; 84479; 84484; 85025; 85610; 85730; 87040; 87081; 87086; 93005; 93971; 96361; 96365; 99291; 99292; J0696; J1644; J3370; J3490; J7060